=== PATIENT | female | born 1955 | race Caucasian/White ===

== ENCOUNTER → 2020-08-17 | Outpatient (CLI) | payer OTHER, MEDICARE ==
[~2020-08-17] MED LIST: GADOBENATE DIMEGLUMINE 1 ML IV ONE; SODIUM CHLORIDE 0.9% 100 ML ONE
[2020-08-17 09:51] LABS: BLOOD UREA NITROGEN 12 mg/dL (7-26); BUN/CREATININE RATIO 16 (6-25); CREATININE, SERUM 0.73 mg/dL (0.57-1.11); EST GLOMERULAR FILTRATION RATE > 60 ML/MIN (60-)
--- NOTE | 2020-08-17 12:00 | Diagnostic Imaging Report ---
MRV of the abdomen and pelvis. History: Bilateral lower extremity varicose veins. Comparison: None available. Technique: 2 D time of flight and contrast-enhanced 3-D MRV imaging of the abdomen and pelvis was performed pre and post-IV administration of 20 cc of MultiHance, during early and delayed phases. MIP and VRT reformations were obtained. Discussion: MRV demonstrates adequate contrast opacification and patency of the IVC, as well as the right common, internal, external iliac veins. The left common, internal, and external iliac veins are not well opacified with contrast and difficult to visualize. A 3.5 cm oval stone is present within the gallbladder without evidence of gallbladder wall thickening. A subcentimeter cyst is noted within the left kidney. The abdomen is otherwise unremarkable. IMPRESSION: 1. Patent IVC and right iliac vessels. Poor visualization of the left iliac vessels may be secondary to differential in flow and bolus timing, but thrombosis cannot be excluded. Consider correlation with lower extremity Doppler exam and/or CT. 2. Cholelithiasis. Signed by: Hernando Wall on 08/17/2020 11:57 AM
== END ==
LOC: MRI 09:03
PROVIDERS: ATTEND Internal Medicine Cardiovascular Disease
DX: N94.89 Other specified conditions associated with female genital organs and menstrual cycle (principal); I83.893 Varicose veins of bilateral lower extremities with other complications
CPT/HCPCS: 36415; 74185; 82565; 84520; A9577; J7050

== ENCOUNTER → 2020-12-11 | Day surgery (SDC) | payer MEDICARE ==
[2020-12-01 14:47] LABS: BASOPHILS # (AUTO) 0.1 (0.0-0.1); BASOPHILS % 1.2 % (0.0-1.0); EOSINOPHILS # (AUTO) 0.2 (0.0-0.4); EOSINOPHILS % 2.4 % (0.0-6.0); HEMATOCRIT 41.2 % (34.2-44.1); LYMPHOCYTES # (AUTO) 2.3 (1.0-3.2); LYMPHOCYTES % 30.3 % (18.0-39.1); MEAN CORPUSCULAR HEMOGLOBIN 28.1 pg (28-32); MEAN CORPUSCULAR HGB CONC 31.6 g/dL (31-35); MEAN CORPUSCULAR VOLUME 89.2 fL (81-99); MONOCYTES # (AUTO) 0.7 (0.2-0.8); MONOCYTES % 8.9 % (4.4-11.3); NEUTROPHILS # (AUTO) 4.3 (2.1-6.9); NEUTROPHILS % 57.1 % (38.7-80.0); PLATELET COUNT 526 x10e3/uL (140-360); RED BLOOD COUNT 4.62 x10e6/uL (3.6-5.1); RED CELL DISTRIBUTION WIDTH 13.4 % (11.7-14.4)
[2020-12-01 15:07] LABS: ALANINE AMINOTRANSFERASE 11 IU/L (0-55); ALBUMIN 3.7 g/dL (3.5-5.0); ALBUMIN/GLOBULIN RATIO 1.1 (0.8-2.0); ALKALINE PHOSPHATASE 76 IU/L (40-150); ANION GAP 14.3 mmol/L (8-16); BLOOD UREA NITROGEN 11 mg/dL (7-26); BUN/CREATININE RATIO 14 (6-25); CALCIUM 8.8 mg/dL (8.4-10.2); CARBON DIOXIDE 29 mmol/L (22-29); CHLORIDE 105 mmol/L (98-107); CREATININE, SERUM 0.77 mg/dL (0.57-1.11); EST GLOMERULAR FILTRATION RATE > 60 ML/MIN (60-); GLUCOSE 120 mg/dL (74-118); POTASSIUM 4.3 mmol/L (3.5-5.1); SODIUM 144 mmol/L (136-145)
[~2020-12-11] MED LIST changes: +ALBUTEROL0.63 MG/3 NEB; +BUPIVACAINE 0.25% 30ML SDV ONE; +DULERA 100 MCG/13 GM INH; +FENTANYL CITRATE/PF 100MCG/2 ML INJ ONE; -GADOBENATE DIMEGLUMINE 1 ML IV ONE; +HYDROCODONE/APAP 7.5MG-325MG 1 EA TAB ONE; +OMEPRAZOLE40 MG PO; -SODIUM CHLORIDE 0.9% 100 ML ONE; +VIT B12 INJ; +VIT D3 PO
[2020-12-11 12:30] VITALS: BP 110/60
== END | disposition home or self-care (01) ==
LOC: OR 06:50
PROVIDERS: ATTEND Surgery
DX: K80.10 Calculus of gallbladder with chronic cholecystitis without obstruction (principal); G47.33 Obstructive sleep apnea (adult) (pediatric); I69.354 Hemiplegia and hemiparesis following cerebral infarction affecting left non-dominant side; J45.909 Unspecified asthma, uncomplicated; Z88.6 Allergy status to analgesic agent; Z88.0 Allergy status to penicillin; Z01.810 Encounter for preprocedural cardiovascular examination; Z01.812 Encounter for preprocedural laboratory examination; Z01.818 Encounter for other preprocedural examination; Z20.822 Contact with and (suspected) exposure to COVID-19
CPT/HCPCS: 36415; 47562; 71046; 80053; 85025; 88304; 93005; C1766; J3010; U0002 ×2

== ENCOUNTER → 2023-01-23 | Outpatient (CLI) | payer MEDICARE ==
[~2023-01-23] MED LIST changes: -BUPIVACAINE 0.25% 30ML SDV ONE; -FENTANYL CITRATE/PF 100MCG/2 ML INJ ONE; -HYDROCODONE/APAP 7.5MG-325MG 1 EA TAB ONE
== END ==
LOC: RAD 12:18
PROVIDERS: ATTEND Internal Medicine
DX: Z09 Encounter for follow-up examination after completed treatment for conditions other than malignant neoplasm (principal)
CPT/HCPCS: 74019

== ENCOUNTER 2024-08-30 08:58 | Inpatient (IN) | payer MEDICARE ==
[~2024-08-30] VITALS: Ht 160 cm; Wt 95.3 kg
[2024-08-30] MEDS: Morphine 4mg INJECTION 4 MG/ML INJ IV STA (09:24)
[2024-08-30] MEDS: ONDANSETRON HCL INJ 2MG/ML 2ML 2 MG/ML VIAL IV STA (09:24)
[2024-08-30] MEDS: SODIUM CHLORIDE 0.9% 1000ML 1,000 ML IV STA ×3 (09:26→11:24)
[2024-08-30 09:27] LABS: BASOPHILS # (AUTO) 0.1 (0.0-0.1); BASOPHILS % 0.4 % (0.0-1.0); EOSINOPHILS % 0.1 % (0.0-6.0); HEMATOCRIT 44.6 % (34.2-44.1); HEMOGLOBIN 14.2 g/dL (12.0-16.0); LYMPHOCYTES # (AUTO) 0.8 (1.0-3.2); LYMPHOCYTES % 5.9 % (18.0-39.1); MEAN CORPUSCULAR HEMOGLOBIN 28.5 pg (28-32); MEAN CORPUSCULAR HGB CONC 31.8 g/dL (31-35); MEAN CORPUSCULAR VOLUME 89.4 fL (81-99); MONOCYTES % 7.9 % (4.4-11.3); NEUTROPHILS # (AUTO) 11.2 (2.1-6.9); NEUTROPHILS % 85.2 % (38.7-80.0); PLATELET COUNT 543 x10e3/uL (140-360); RED BLOOD COUNT 4.99 x10e6/uL (3.6-5.1); RED CELL DISTRIBUTION WIDTH 13.2 % (11.7-14.4); WHITE BLOOD COUNT 13.17 x10e3/uL (4.8-10.8)
[2024-08-30] MEDS: CIPROFLOXACIN 400 MG/D5W 200ML 200 ML IV SCH (09:28)
[2024-08-30] MEDS: ACETAMINOPHEN 325 MG TAB PO STA (09:31)
[2024-08-30 10:01] LABS: ALBUMIN 3.9 g/dL (3.5-5.0); ALBUMIN/GLOBULIN RATIO 1.1 (0.8-2.0); ANION GAP 16.3 mmol/L (8-16); BILIRUBIN,TOTAL 1.1 mg/dL (0.2-1.2); CALCIUM 9.2 mg/dL (8.4-10.2); CREATININE, SERUM 0.82 mg/dL (0.57-1.11); TOTAL PROTEIN 7.6 g/dL (6.5-8.1)
[2024-08-30 10:03] LABS: POTASSIUM 3.3 mmol/L (3.5-5.1)
[2024-08-30 10:07] LABS: TROPONIN I 0.001 ng/mL (0-0.300)
[2024-08-30] MEDS: METRONIDAZOLE 500MG/NS 100ML 100 ML IV SCH (10:12)
[2024-08-30] MEDS ORDERED: IOPAMIDOL 370 MG/ML 100 ML INFUS..BTL INJ ONE ×2 (10:32→13:51)
[2024-08-30 11:38] LABS: BILIRUBIN,URINE NEGATIVE (NEGATIVE); CLARITY,URINE CLEAR (CLEAR); COLOR,URINE YELLOW (YELLOW); GLUCOSE, URINE NEGATIVE (NEGATIVE); KETONES,URINE 1+ (NEGATIVE); LEUKOCYTE ESTERASE ,URINE SMALL (NEGATIVE); NITRITE,URINE NEGATIVE (NEGATIVE); PH,URINE 6 (5 - 7); PROTEIN,URINE DIPSTICK NEGATIVE (NEGATIVE); URINE UROBILINOGEN 0.2 mg/dL (0.2 - 1)
[2024-08-30 11:51] LABS: BACTERIA,URINE MANY /HPF; EPITHELIAL CELLS,URINE MANY /LPF; RBC,URINE 0-5 /HPF (0-5)
[2024-08-30] MEDS ORDERED: ONDANSETRON HCL INJ 2MG/ML 2ML 2 MG/ML VIAL IV PRN (12:00)
[2024-08-30 12:02] LABS: INR 1.06; PROTHROMBIN TIME 14.4 seconds (11.9-14.5)
[2024-08-30] MEDS: SODIUM CHLORIDE 0.9% 1000ML 1,000 ML IV SCH (13:41)
[2024-08-30] MEDS ORDERED: SODIUM CHLORIDE 0.9% 500ML 500 ML ONE (13:51)
[2024-08-30] MEDS ORDERED: LIDOCAINE HCL 1% LOCAL INJ 20 ML VIAL ONE (13:51)
[2024-08-30] MEDS ORDERED: CEFTRIAXONE 1 GM VIAL ONE (14:23)
[2024-08-30] MEDS ORDERED: FENTANYL CITRATE/PF 100MCG/2 ML INJ ONE (15:57)
[2024-08-30] MEDS ORDERED: MIDAZOLAM HCL 2 MG/2 ML VIAL ONE (15:57)
[2024-08-30 17:00] VITALS: PULSE 84; RESP 20; TEMP 98.8
[2024-08-30] MEDS: Morphine 4mg INJECTION 4 MG/ML INJ IV PRN (18:05)
[2024-08-30 20:00] VITALS: BP 115/51; PULSE 96; RESP 18; TEMP 100.9; O2SAT 95
[2024-08-30 20:42] VITALS: PULSE 96; RESP 18; O2SAT 95
[2024-08-30 22:57] VITALS: BP 115/51; PULSE 96; RESP 18; TEMP 100.9; O2SAT 95
[2024-08-30 22:58] VITALS: BP 115/51; PULSE 96; RESP 18; TEMP 100.9; O2SAT 95
[2024-08-30 22:59] VITALS: BP 115/51; PULSE 96; RESP 18; TEMP 100.9; O2SAT 95
[2024-08-30] MEDS ORDERED: HYDRALAZINE HCL 20 MG/ML VIAL IV PRN (23:45)
[2024-08-30] MEDS ORDERED: ACETAMINOPHEN 1000 MG/100 ML IV PRN (23:45)
[2024-08-30] MEDS: ACETAMINOPHEN 325 MG TAB PO PRN (23:56)
[2024-08-31] VITALS (9 sets, daily range): BP systolic 100–130; BP diastolic 44–66; PULSE 73–99; RESP 18–20; TEMP 98.1–103; O2SAT 95–100
[2024-08-31 06:33] LABS: BASOPHILS # (AUTO) 0.1 (0.0-0.1); BASOPHILS % 0.4 % (0.0-1.0); EOSINOPHILS % 0.1 % (0.0-6.0); HEMATOCRIT 34.8 % (34.2-44.1); HEMOGLOBIN 11.3 g/dL (12.0-16.0); LYMPHOCYTES # (AUTO) 1.3 (1.0-3.2); LYMPHOCYTES % 9.3 % (18.0-39.1); MEAN CORPUSCULAR HEMOGLOBIN 28.6 pg (28-32); MEAN CORPUSCULAR HGB CONC 32.5 g/dL (31-35); MEAN CORPUSCULAR VOLUME 88.1 fL (81-99); MONOCYTES # (AUTO) 1.6 (0.2-0.8); MONOCYTES % 12.1 % (4.4-11.3); NEUTROPHILS # (AUTO) 10.5 (2.1-6.9); NEUTROPHILS % 77.6 % (38.7-80.0); PLATELET COUNT 416 x10e3/uL (140-360); RED BLOOD COUNT 3.95 x10e6/uL (3.6-5.1); RED CELL DISTRIBUTION WIDTH 13.4 % (11.7-14.4); WHITE BLOOD COUNT 13.51 x10e3/uL (4.8-10.8)
[2024-08-31 07:07] LABS: ALANINE AMINOTRANSFERASE 28 IU/L (0-55); ALBUMIN 2.6 g/dL (3.5-5.0); ALBUMIN/GLOBULIN RATIO 0.9 (0.8-2.0); ALKALINE PHOSPHATASE 61 IU/L (40-150); BILIRUBIN,TOTAL 0.6 mg/dL (0.2-1.2); BLOOD UREA NITROGEN < 5 mg/dL (7-26); CALCIUM 7.9 mg/dL (8.4-10.2); CARBON DIOXIDE 23 mmol/L (22-29); CHLORIDE 107 mmol/L (98-107); CREATININE, SERUM 0.68 mg/dL (0.57-1.11); EST GLOMERULAR FILTRATION RATE 95 ML/MIN (>=60); GLUCOSE 98 mg/dL (74-118); SODIUM 138 mmol/L (136-145); TOTAL PROTEIN 5.4 g/dL (6.5-8.1)
[2024-08-31 07:08] LABS: BUN/CREATININE RATIO 7 (6-25)
[2024-08-31] MEDS: HYDROCODONE/APAP 10MG-325MG TAB PO PRN (08:47)
[2024-08-31] MEDS ORDERED: ALBUTEROL/IPRATROPIUM 3 ML NEB NEB PRN (10:30)
[2024-08-31] MEDS ORDERED: KETOROLAC TROMETHAMINE 30 MG/ML VIAL IV PRN (10:30)
[2024-08-31] MEDS: KETOROLAC TROMETHAMINE 30 MG/ML VIAL IV STA (12:47)
[2024-08-31] MEDS: CEFEPIME 2 GM in SODIUM CHLORIDE 0.9% 100 ML IV SCH (13:09)
[2024-09-01] VITALS (7 sets, daily range): BP systolic 114–139; BP diastolic 52–69; PULSE 71–78; RESP 16–19; TEMP 98.7–99.6; O2SAT 98–100
[2024-09-01] MEDS: PANTOPRAZOLE SOD 40 MG TABEC PO SCH (10:56)
[2024-09-01] MEDS ORDERED: SODIUM CHLORIDE 0.9% 100 ML ONE (13:03)
[2024-09-02] VITALS (9 sets, daily range): BP systolic 102–152; BP diastolic 51–79; PULSE 68–85; RESP 17–19; TEMP 98.2–98.8; O2SAT 96–100
[2024-09-02 06:28] LABS: BASOPHILS # (AUTO) 0.1 (0.0-0.1); BASOPHILS % 0.7 % (0.0-1.0); EOSINOPHILS # (AUTO) 0.1 (0.0-0.4); EOSINOPHILS % 1.7 % (0.0-6.0); HEMATOCRIT 32.9 % (34.2-44.1); HEMOGLOBIN 10.4 g/dL (12.0-16.0); LYMPHOCYTES # (AUTO) 1.3 (1.0-3.2); LYMPHOCYTES % 15.7 % (18.0-39.1); MEAN CORPUSCULAR HEMOGLOBIN 28.2 pg (28-32); MEAN CORPUSCULAR HGB CONC 31.6 g/dL (31-35); MEAN CORPUSCULAR VOLUME 89.2 fL (81-99); MONOCYTES % 11.8 % (4.4-11.3); NEUTROPHILS # (AUTO) 5.9 (2.1-6.9); NEUTROPHILS % 69.6 % (38.7-80.0); PLATELET COUNT 441 x10e3/uL (140-360); RED BLOOD COUNT 3.69 x10e6/uL (3.6-5.1); RED CELL DISTRIBUTION WIDTH 13.3 % (11.7-14.4); WHITE BLOOD COUNT 8.42 x10e3/uL (4.8-10.8)
[2024-09-02 07:07] LABS: ANION GAP 11.9 mmol/L (8-16); BLOOD UREA NITROGEN < 5 mg/dL (7-26); CALCIUM 8.2 mg/dL (8.4-10.2); CARBON DIOXIDE 24 mmol/L (22-29); CHLORIDE 110 mmol/L (98-107); CREATININE, SERUM 0.61 mg/dL (0.57-1.11); EST GLOMERULAR FILTRATION RATE 98 ML/MIN (>=60); GLUCOSE 89 mg/dL (74-118); SODIUM 143 mmol/L (136-145)
[2024-09-02 07:26] LABS: BUN/CREATININE RATIO 8 (6-25); POTASSIUM 2.9 mmol/L (3.5-5.1)
[2024-09-02] MEDS: POTASSIUM CHLORIDE 20MEQ/100ML 100 ML IV STA (10:32)
[2024-09-02] MEDS: SOD CHL 0.45%/POT CHL 20MEQ 1,000 ML IV SCH (10:32)
[2024-09-02] MEDS: POTASSIUM CHLORIDE 10MEQ EA PO SCH (10:33)
[2024-09-02] MEDS: Morphine 4mg INJECTION 4 MG/ML INJ IV PRN (16:21)
[2024-09-03] VITALS (9 sets, daily range): BP systolic 96–134; BP diastolic 56–71; PULSE 68–85; RESP 16–21; TEMP 97.9–99; O2SAT 95–100
[2024-09-03 08:58] LABS: BASOPHILS % 0.6 % (0.0-1.0); EOSINOPHILS # (AUTO) 0.2 (0.0-0.4); EOSINOPHILS % 2.3 % (0.0-6.0); HEMATOCRIT 37.2 % (34.2-44.1); HEMOGLOBIN 11.6 g/dL (12.0-16.0); LYMPHOCYTES # (AUTO) 1.4 (1.0-3.2); LYMPHOCYTES % 20.4 % (18.0-39.1); MEAN CORPUSCULAR HEMOGLOBIN 28.3 pg (28-32); MEAN CORPUSCULAR HGB CONC 31.2 g/dL (31-35); MEAN CORPUSCULAR VOLUME 90.7 fL (81-99); MONOCYTES # (AUTO) 0.6 (0.2-0.8); MONOCYTES % 9.2 % (4.4-11.3); NEUTROPHILS # (AUTO) 4.7 (2.1-6.9); NEUTROPHILS % 67.1 % (38.7-80.0); PLATELET COUNT 537 x10e3/uL (140-360); RED CELL DISTRIBUTION WIDTH 13.6 % (11.7-14.4); WHITE BLOOD COUNT 6.95 x10e3/uL (4.8-10.8)
[2024-09-03 09:15] LABS: ANION GAP 11.9 mmol/L (8-16); BLOOD UREA NITROGEN < 5 mg/dL (7-26); CARBON DIOXIDE 26 mmol/L (22-29); CHLORIDE 106 mmol/L (98-107); CREATININE, SERUM 0.64 mg/dL (0.57-1.11); EST GLOMERULAR FILTRATION RATE 97 ML/MIN (>=60); GLUCOSE 124 mg/dL (74-118); POTASSIUM 3.9 mmol/L (3.5-5.1); SODIUM 140 mmol/L (136-145)
[2024-09-03 09:16] LABS: MAGNESIUM 1.8 MG/DL (1.3-2.1)
[2024-09-03 09:20] LABS: BUN/CREATININE RATIO 8 (6-25)
[2024-09-03] MEDS: AMOXICILLIN 250 MG CAP PO SCH (22:03)
[2024-09-04] VITALS (12 sets, daily range): BP systolic 114–162; BP diastolic 60–86; PULSE 73–90; RESP 16–21; TEMP 97.4–98.5; O2SAT 98–100
[2024-09-04] MEDS ORDERED: PHENAZOPYRIDINE HCL 100 MG TAB PO PRN (13:15)
[2024-09-05] VITALS (8 sets, daily range): BP systolic 101–117; BP diastolic 51–60; PULSE 64–86; RESP 18; TEMP 97.6–98.6; O2SAT 95–100
[2024-09-05] MEDS ORDERED: MIDAZOLAM HCL 2 MG/2 ML VIAL ONE (04:24)
[2024-09-05] MEDS ORDERED: PROPOFOL IV EMULSION 10 MG/ML 20 ML VIAL ONE ×2 (04:25→04:48)
[2024-09-05] MEDS ORDERED: FENTANYL CITRATE/PF 100MCG/2 ML INJ ONE (04:31)
[2024-09-05] MEDS ORDERED: DEXAMETHASONE SOD PHOS INJ 4 MG/ML SDV ONE (04:40)
[2024-09-05] MEDS ORDERED: KETOROLAC TROMETHAMINE 30 MG/ML VIAL ONE (04:40)
[2024-09-05] MEDS ORDERED: ONDANSETRON HCL INJ 2MG/ML 2ML 2 MG/ML VIAL ONE (04:40)
[2024-09-05] MEDS: SOLIFENACIN SUCCINATE 5 MG TAB PO SCH (09:45)
[2024-09-06 00:43] VITALS: BP 117/53; PULSE 73; RESP 16; TEMP 97.9; O2SAT 99
[2024-09-06 04:00] VITALS: BP 111/58; PULSE 66; RESP 17; TEMP 97.9; O2SAT 97
[2024-09-06 09:00] VITALS: BP 133/81; PULSE 72; RESP 17; TEMP 98.9; O2SAT 95
[2024-09-06 09:33] VITALS: BP 133/81; PULSE 72; RESP 17; TEMP 98.9; O2SAT 95
== END 2024-09-06 11:08 | disposition home or self-care (01) | DRG 854 ==
LOC: ER 09:02 → ERHOLD 12:30 → MED/SURG3 18:34
PROVIDERS: ADMIT Internal Medicine; ATTEND Internal Medicine
PROC: 3E0333Z Introduction of Anti-inflammatory into Peripheral Vein, Percutaneous Approach (ICD-10-PCS; principal; 2024-08-30)
PROC: 06HY33Z Insertion of Infusion Device into Lower Vein, Percutaneous Approach (ICD-10-PCS; 2024-08-30)
PROC: 0T9130Z Drainage of Left Kidney with Drainage Device, Percutaneous Approach (ICD-10-PCS; 2024-08-30)
PROC: 02HV33Z Insertion of Infusion Device into Superior Vena Cava, Percutaneous Approach (ICD-10-PCS; 2024-08-30)
PROC: 0T778DZ Dilation of Left Ureter with Intraluminal Device, Via Natural or Artificial Opening Endoscopic (ICD-10-PCS; 2024-09-04)
PROC: 0T7D8ZZ Dilation of Urethra, Via Natural or Artificial Opening Endoscopic (ICD-10-PCS; 2024-09-04)
PROC: 0TP5X0Z Removal of Drainage Device from Kidney, External Approach (ICD-10-PCS; 2024-09-04)
PROC: BT141ZZ Fluoroscopy of Kidneys, Ureters and Bladder using Low Osmolar Contrast (ICD-10-PCS; 2024-09-04)
DX: A41.81 Sepsis due to Enterococcus (principal); N13.6 Pyonephrosis; N23 Unspecified renal colic; E86.0 Dehydration; R53.81 Other malaise; R11.2 Nausea with vomiting, unspecified; D64.9 Anemia, unspecified; R31.0 Gross hematuria; E66.9 Obesity, unspecified; Z68.37 Body mass index [BMI] 37.0-37.9, adult; Z96.0 Presence of urogenital implants; Z90.49 Acquired absence of other specified parts of digestive tract; Z90.711 Acquired absence of uterus with remaining cervical stump; Z98.84 Bariatric surgery status; Z88.0 Allergy status to penicillin; Z88.6 Allergy status to analgesic agent; N81.10 Cystocele, unspecified; N81.6 Rectocele; N35.92 Unspecified urethral stricture, female
CPT/HCPCS: 36415; 36568; 50432; 74177; 74420; 74470; 76942; 80048; 80053; 81001; 82550; 83605; 83690; 83735; 84100; 84484; 85025; 85610; 87040; 87086; 87186; 93005; 94660; 94799; 99152; 99153; 99284; C1729; C1758; C1766; C1769; C2617; J0692; J0696; J1100; J1885; J2003; J2250; J2270; J2405; J3480; J7030; J7040; J7050; Q9967

== ENCOUNTER 2024-09-10 10:23 | Inpatient (IN) | payer MEDICARE, OTHER ==
[~2024-09-10] VITALS: Ht 167.6 cm; Wt 95.3 kg
[2024-09-10 12:40] LABS: BILIRUBIN,URINE SMALL (NEGATIVE); CLARITY,URINE TURBID (CLEAR); COLOR,URINE RED (YELLOW); GLUCOSE, URINE NEGATIVE (NEGATIVE); KETONES,URINE TRACE (NEGATIVE); LEUKOCYTE ESTERASE ,URINE SMALL (NEGATIVE); NITRITE,URINE NEGATIVE (NEGATIVE); PH,URINE 8.5 (5 - 7); PROTEIN,URINE DIPSTICK >=300 (NEGATIVE); URINE UROBILINOGEN 1 mg/dL (0.2 - 1)
[2024-09-10 12:41] LABS: BACTERIA,URINE MANY /HPF; EPITHELIAL CELLS,URINE RARE /LPF; RBC,URINE >50 /HPF (0-5); WBC,URINE (MAN) >50 /HPF (0-5)
[2024-09-10 12:41] LABS: BASOPHILS # (AUTO) 0.1 (0.0-0.1); BASOPHILS % 0.7 % (0.0-1.0); EOSINOPHILS # (AUTO) 0.2 (0.0-0.4); EOSINOPHILS % 2.8 % (0.0-6.0); HEMATOCRIT 37.1 % (34.2-44.1); HEMOGLOBIN 11.9 g/dL (12.0-16.0); LYMPHOCYTES # (AUTO) 1.4 (1.0-3.2); LYMPHOCYTES % 21.1 % (18.0-39.1); MEAN CORPUSCULAR HEMOGLOBIN 28.5 pg (28-32); MEAN CORPUSCULAR HGB CONC 32.1 g/dL (31-35); MEAN CORPUSCULAR VOLUME 88.8 fL (81-99); MONOCYTES # (AUTO) 0.6 (0.2-0.8); MONOCYTES % 8.2 % (4.4-11.3); NEUTROPHILS # (AUTO) 4.5 (2.1-6.9); NEUTROPHILS % 66.9 % (38.7-80.0); PLATELET COUNT 690 x10e3/uL (140-360); RED BLOOD COUNT 4.18 x10e6/uL (3.6-5.1); RED CELL DISTRIBUTION WIDTH 14.5 % (11.7-14.4); WHITE BLOOD COUNT 6.74 x10e3/uL (4.8-10.8)
[2024-09-10 13:01] LABS: INR 1.13; PROTHROMBIN TIME 15.2 seconds (11.9-14.5)
[2024-09-10 13:02] LABS: ALBUMIN 3.4 g/dL (3.5-5.0); ALBUMIN/GLOBULIN RATIO 1.2 (0.8-2.0); BILIRUBIN,TOTAL 0.5 mg/dL (0.2-1.2); CALCIUM 8.8 mg/dL (8.4-10.2); CREATININE, SERUM 0.66 mg/dL (0.57-1.11); PARTIAL THROMBOPLASTIN TIME 34.5 seconds (23.8-35.5); TOTAL PROTEIN 6.3 g/dL (6.5-8.1)
[2024-09-10] MEDS ORDERED: IOPAMIDOL 370 MG/ML 100 ML INFUS..BTL INJ ONE (14:23)
[2024-09-10] MEDS ORDERED: ONDANSETRON HCL INJ 2MG/ML 2ML 2 MG/ML VIAL IV PRN (16:30)
[2024-09-10] MEDS ORDERED: SODIUM CHLORIDE FLUSH 10 ML SYR INJ PRN (16:30)
[2024-09-10] MEDS: LEVOFLOXACIN 500MG/D5W 100ML 100 ML IV SCH (18:47)
[2024-09-10 18:51] VITALS: PULSE 74; RESP 19; TEMP 98.6
[2024-09-10 20:00] VITALS: BP 111/51; PULSE 67; RESP 18; TEMP 98.1; O2SAT 100
[2024-09-10 21:00] VITALS: BP 111/51; PULSE 67; RESP 18; TEMP 98.1; O2SAT 100
[2024-09-10] MEDS: SODIUM CHLORIDE 0.9% 1000ML 1,000 ML IV SCH (21:34)
[2024-09-11] VITALS (8 sets, daily range): BP systolic 105–128; BP diastolic 50–60; PULSE 67–77; RESP 18–20; TEMP 97.4–98.6; O2SAT 97–100
[2024-09-11] MEDS ORDERED: VENTOLIN HFA18 GM INH (01:25)
[2024-09-11] MEDS ORDERED: ZAFIRLUKAST20 MG PO (01:25)
[2024-09-11] MEDS ORDERED: SOLIFENACIN SUC10 MG PO (01:25)
[2024-09-11] MEDS ORDERED: MIRTAZAPINE7.5 MG PO (01:25)
[2024-09-11 07:00] LABS: BASOPHILS # (AUTO) 0.1 (0.0-0.1); BASOPHILS % 1.1 % (0.0-1.0); EOSINOPHILS # (AUTO) 0.2 (0.0-0.4); EOSINOPHILS % 4.4 % (0.0-6.0); HEMATOCRIT 36.1 % (34.2-44.1); HEMOGLOBIN 11.2 g/dL (12.0-16.0); LYMPHOCYTES # (AUTO) 1.3 (1.0-3.2); LYMPHOCYTES % 23.3 % (18.0-39.1); MEAN CORPUSCULAR VOLUME 90.3 fL (81-99); MONOCYTES # (AUTO) 0.6 (0.2-0.8); MONOCYTES % 10.3 % (4.4-11.3); NEUTROPHILS # (AUTO) 3.3 (2.1-6.9); NEUTROPHILS % 60.5 % (38.7-80.0); PLATELET COUNT 611 x10e3/uL (140-360); RED CELL DISTRIBUTION WIDTH 14.3 % (11.7-14.4); WHITE BLOOD COUNT 5.46 x10e3/uL (4.8-10.8)
[2024-09-11 07:51] LABS: ANION GAP 12.7 mmol/L (8-16); BILIRUBIN,TOTAL 0.5 mg/dL (0.2-1.2); CALCIUM 8.8 mg/dL (8.4-10.2); CREATININE, SERUM 0.65 mg/dL (0.57-1.11); POTASSIUM 3.7 mmol/L (3.5-5.1)
[2024-09-11] MEDS ORDERED: MAGNESIUM HYDROXIDE 30 ML UDC PO PRN (10:00)
[2024-09-11] MEDS ORDERED: Morphine 4mg INJECTION 4 MG/ML INJ IV PRN (10:00)
[2024-09-11] MEDS ORDERED: HYDROCODONE/APAP 10MG-325MG TAB PO PRN (10:00)
[2024-09-11] MEDS: SENNA-S TABLET PO SCH (17:00)
[2024-09-11] MEDS ORDERED: BUPROPION XL150 MG PO (20:33)
[2024-09-11] MEDS: MIRTAZAPINE 15 MG TAB PO SCH (20:36)
[2024-09-12] VITALS (7 sets, daily range): BP systolic 105–118; BP diastolic 47–58; PULSE 63–74; RESP 16–19; TEMP 97.2–98.2; O2SAT 98–100
[2024-09-12] MEDS: PANTOPRAZOLE SOD 40 MG TABEC PO SCH (06:21)
[2024-09-13] VITALS (8 sets, daily range): BP systolic 102–121; BP diastolic 49–68; PULSE 68–81; RESP 16–18; TEMP 97.7–98.9; O2SAT 97–99
[2024-09-14 00:34] VITALS: BP 116/62; PULSE 65; RESP 20; TEMP 98.1; O2SAT 100
[2024-09-14 04:00] VITALS: BP 114/70; PULSE 68; RESP 18; TEMP 97.9; O2SAT 99
[2024-09-14 06:12] LABS: BASOPHILS # (AUTO) 0.1 (0.0-0.1); BASOPHILS % 1.3 % (0.0-1.0); EOSINOPHILS # (AUTO) 0.2 (0.0-0.4); EOSINOPHILS % 3.1 % (0.0-6.0); HEMOGLOBIN 12.5 g/dL (12.0-16.0); LYMPHOCYTES # (AUTO) 2.1 (1.0-3.2); LYMPHOCYTES % 39.3 % (18.0-39.1); MEAN CORPUSCULAR HEMOGLOBIN 28.5 pg (28-32); MEAN CORPUSCULAR HGB CONC 30.5 g/dL (31-35); MEAN CORPUSCULAR VOLUME 93.4 fL (81-99); MONOCYTES # (AUTO) 0.5 (0.2-0.8); MONOCYTES % 8.6 % (4.4-11.3); NEUTROPHILS # (AUTO) 2.6 (2.1-6.9); NEUTROPHILS % 47.5 % (38.7-80.0); PLATELET COUNT 588 x10e3/uL (140-360); RED BLOOD COUNT 4.39 x10e6/uL (3.6-5.1); RED CELL DISTRIBUTION WIDTH 13.9 % (11.7-14.4); WHITE BLOOD COUNT 5.45 x10e3/uL (4.8-10.8)
[2024-09-14 06:45] LABS: ANION GAP 14.9 mmol/L (8-16); CALCIUM 9.3 mg/dL (8.4-10.2); CREATININE, SERUM 0.73 mg/dL (0.57-1.11); POTASSIUM 3.9 mmol/L (3.5-5.1)
[2024-09-14 08:18] VITALS: BP 106/52; PULSE 73; RESP 18; TEMP 98; O2SAT 98
[2024-09-14 12:21] VITALS: BP 110/64; PULSE 79; RESP 17; TEMP 98.3; O2SAT 100
[2024-09-14 16:00] VITALS: BP 121/68; PULSE 72; RESP 18; TEMP 98; O2SAT 98
[2024-09-14 20:32] VITALS: BP 116/55; PULSE 76; RESP 17; TEMP 98.2; O2SAT 100
[2024-09-15 01:51] VITALS: BP 116/55; PULSE 76; RESP 17; TEMP 98.2; O2SAT 100
[2024-09-15 04:16] VITALS: BP 113/56; PULSE 66; RESP 16; TEMP 98.1; O2SAT 97
[2024-09-15 08:00] VITALS: BP 130/74; PULSE 71; RESP 18; TEMP 97.8; O2SAT 100
[2024-09-15 12:12] VITALS: BP 131/67; PULSE 74; RESP 18; TEMP 97.8; O2SAT 96
[2024-09-15] MEDS ORDERED: LIDOCAINE HCL 2% LOCAL INJ 5 ML SDV VIAL INJ ONE (14:33)
[2024-09-15] MEDS ORDERED: PROPOFOL IV EMULSION 10 MG/ML 20 ML VIAL ONE (14:33)
[2024-09-15] MEDS ORDERED: FENTANYL CITRATE/PF 100MCG/2 ML INJ ONE (14:46)
[2024-09-15] MEDS ORDERED: ONDANSETRON HCL INJ 2MG/ML 2ML 2 MG/ML VIAL ONE (14:55)
[2024-09-15] MEDS ORDERED: DEXAMETHASONE SOD PHOS INJ 4 MG/ML SDV ONE (14:55)
[2024-09-15] MEDS ORDERED: ACETAMINOPHEN 1000 MG/100 ML 100 ML IV ONE (14:56)
[2024-09-15 16:30] VITALS: BP 142/66; PULSE 64; RESP 18; TEMP 97.5; O2SAT 100
[2024-09-15] MEDS ORDERED: PHENAZOPYRIDINE HCL 100 MG TAB PO PRN (17:15)
[2024-09-16] MEDS ORDERED: SOLIFENACIN SUCCINATE 5 MG TAB PO SCH (09:00)
== END 2024-09-15 21:20 | disposition home or self-care (01) | DRG 660 ==
LOC: ER 11:06 → ERHOLD 16:25 → OBSVTOIN 18:15 → MED/SURG3 19:54
PROVIDERS: ADMIT Internal Medicine; ATTEND Internal Medicine
PROC: 0TP98DZ Removal of Intraluminal Device from Ureter, Via Natural or Artificial Opening Endoscopic (ICD-10-PCS; 2024-09-15)
PROC: BT1F1ZZ Fluoroscopy of Left Kidney, Ureter and Bladder using Low Osmolar Contrast (ICD-10-PCS; 2024-09-15)
PROC: 0UJH7ZZ Inspection of Vagina and Cul-de-sac, Via Natural or Artificial Opening (ICD-10-PCS; 2024-09-15)
PROC: 0T778DZ Dilation of Left Ureter with Intraluminal Device, Via Natural or Artificial Opening Endoscopic (ICD-10-PCS; principal; 2024-09-15 14:47)
PROC: 0TF4XZZ Fragmentation in Left Kidney Pelvis, External Approach (ICD-10-PCS; 2024-09-15 14:47)
DX: T83.593A Infection and inflammatory reaction due to other urinary stents, initial encounter (principal); D68.9 Coagulation defect, unspecified; N13.6 Pyonephrosis; B95.2 Enterococcus as the cause of diseases classified elsewhere; R31.0 Gross hematuria; N81.10 Cystocele, unspecified; N81.6 Rectocele; N95.2 Postmenopausal atrophic vaginitis; N36.2 Urethral caruncle; D64.9 Anemia, unspecified; E66.9 Obesity, unspecified; Z68.33 Body mass index [BMI] 33.0-33.9, adult; Z98.84 Bariatric surgery status; Z90.49 Acquired absence of other specified parts of digestive tract; Z96.0 Presence of urogenital implants; Z88.0 Allergy status to penicillin; Y83.1 Surgical operation with implant of artificial internal device as the cause of abnormal reaction of the patient, or of later complication, without mention of misadventure at the time of the procedure; Z79.899 Other long term (current) drug therapy
CPT/HCPCS: 36415; 50590; 74177; 80048; 80053; 81001; 85025; 85610; 85730; 87086; 99252; 99284; C1758; C2617; J1100; J1956; J2003; J2405; J2470; J7030; Q9967

== ENCOUNTER → 2024-11-05 | Day surgery (SDC) | payer MEDICARE, OTHER ==
[2024-11-03 16:38] LABS: BASOPHILS # (AUTO) 0.1 (0.0-0.1); BASOPHILS % 0.8 % (0.0-1.0); EOSINOPHILS # (AUTO) 0.2 (0.0-0.4); EOSINOPHILS % 2.4 % (0.0-6.0); HEMATOCRIT 40.7 % (34.2-44.1); HEMOGLOBIN 12.1 g/dL (12.0-16.0); LYMPHOCYTES % 31.7 % (18.0-39.1); MEAN CORPUSCULAR HEMOGLOBIN 28.1 pg (28-32); MEAN CORPUSCULAR HGB CONC 29.7 g/dL (31-35); MEAN CORPUSCULAR VOLUME 94.7 fL (81-99); MONOCYTES # (AUTO) 0.5 (0.2-0.8); MONOCYTES % 8.1 % (4.4-11.3); NEUTROPHILS # (AUTO) 3.6 (2.1-6.9); PLATELET COUNT 465 x10e3/uL (140-360); RED CELL DISTRIBUTION WIDTH 13.2 % (11.7-14.4); WHITE BLOOD COUNT 6.28 x10e3/uL (4.8-10.8)
[~2024-11-05] MED LIST changes: +BUPROPION XL150 MG PO; +CLOPIDOGREL75 MG PO; +DEXAMETHASONE SOD PHOS INJ 4 MG/ML SDV ONE; +ELIQUIS5 MG PO; +FENTANYL CITRATE/PF 100MCG/2 ML INJ ONE; +LIDOCAINE HCL 2% LOCAL INJ 5 ML SDV VIAL INJ ONE; +MIDAZOLAM HCL 2 MG/2 ML VIAL ONE; +MIRTAZAPINE7.5 MG PO; +ONDANSETRON HCL INJ 2MG/ML 2ML 2 MG/ML VIAL ONE; +PROPOFOL IV EMULSION 10 MG/ML 20 ML VIAL ONE; +SEVOFLURANE INHAL SOLN 250 ML PEN BTL ONE; +SOLIFENACIN SUC10 MG PO; +VENTOLIN HFA18 GM INH; +ZAFIRLUKAST20 MG PO
[2024-11-05] MEDS: GENTAMICIN 80MG/NS 100 ML 200 ML IV ONE (06:24)
[2024-11-05] MEDS: LACTATED RINGER'S 1,000 ML ONE (06:25)
[2024-11-05 06:53] LABS: ANION GAP 15.2 mmol/L (8-16); CREATININE, SERUM 0.75 mg/dL (0.57-1.11); URIC ACID 4.6 mg/dL (2.6-8.0)
[2024-11-05 06:54] LABS: POTASSIUM 3.2 mmol/L (3.5-5.1)
[2024-11-05] MEDS: PHENAZOPYRIDINE HCL 100 MG TAB ONE (08:52)
[2024-11-05 09:00] VITALS: O2SAT 98
[2024-11-05 09:15] VITALS: BP 125/55; PULSE 80; RESP 16
== END | disposition home or self-care (01) ==
LOC: OR 05:17
PROVIDERS: ATTEND Urology
DX: N20.1 Calculus of ureter (principal); N20.0 Calculus of kidney; N13.30 Unspecified hydronephrosis; Z46.6 Encounter for fitting and adjustment of urinary device; R35.1 Nocturia; R39.14 Feeling of incomplete bladder emptying; N35.92 Unspecified urethral stricture, female; N81.6 Rectocele; N95.2 Postmenopausal atrophic vaginitis; N36.2 Urethral caruncle; G47.33 Obstructive sleep apnea (adult) (pediatric); J45.909 Unspecified asthma, uncomplicated; K21.9 Gastro-esophageal reflux disease without esophagitis; G89.29 Other chronic pain; F41.9 Anxiety disorder, unspecified; F32.A Depression, unspecified; Z88.6 Allergy status to analgesic agent; Z88.0 Allergy status to penicillin; Z01.810 Encounter for preprocedural cardiovascular examination; Z01.812 Encounter for preprocedural laboratory examination; Z01.818 Encounter for other preprocedural examination; Z79.02 Long term (current) use of antithrombotics/antiplatelets; Z79.899 Other long term (current) drug therapy; Z68.36 Body mass index [BMI] 36.0-36.9, adult; Z86.718 Personal history of other venous thrombosis and embolism
CPT/HCPCS: 36415 ×2; 52356; 71046; 74018; 74420; 80048; 84550; 85025; 87086; 87186; 88300; 93005; C1769; C2617; J1100; J1580; J2003; J2405; J2704; J3010; J7121; J2250

== ENCOUNTER → 2025-01-19 | Day surgery (SDC) | payer MEDICARE ==
[2025-01-17 10:13] LABS: BASOPHILS # (AUTO) 0.1 (0.0-0.1); BASOPHILS % 1.1 % (0.0-1.0); EOSINOPHILS # (AUTO) 0.1 (0.0-0.4); EOSINOPHILS % 2.2 % (0.0-6.0); HEMATOCRIT 37.5 % (34.2-44.1); LYMPHOCYTES # (AUTO) 1.7 (1.0-3.2); LYMPHOCYTES % 30.3 % (18.0-39.1); MEAN CORPUSCULAR HEMOGLOBIN 27.8 pg (28-32); MEAN CORPUSCULAR VOLUME 86.8 fL (81-99); MONOCYTES # (AUTO) 0.5 (0.2-0.8); MONOCYTES % 8.5 % (4.4-11.3); NEUTROPHILS # (AUTO) 3.2 (2.1-6.9); NEUTROPHILS % 57.7 % (38.7-80.0); PLATELET COUNT 460 x10e3/uL (140-360); RED BLOOD COUNT 4.32 x10e6/uL (3.6-5.1); RED CELL DISTRIBUTION WIDTH 13.7 % (11.7-14.4); WHITE BLOOD COUNT 5.54 x10e3/uL (4.8-10.8)
[~2025-01-19] MED LIST changes: +B12 ACTIVE1000 MCG; +FAMOTIDINE 20 MG/2 ML VIAL IV ONE; -MIDAZOLAM HCL 2 MG/2 ML VIAL ONE; -SEVOFLURANE INHAL SOLN 250 ML PEN BTL ONE; +VITAMIN B12 INJ; +VITAMIN D250 MCG
[2025-01-19] MEDS: SODIUM CHLORIDE 0.9% 1000ML 1,000 ML ONE (09:03)
[2025-01-19] MEDS: GENTAMICIN 80MG/NS 100 ML 200 ML IV ONE (09:04)
[2025-01-19 09:38] LABS: ANION GAP 15.7 mmol/L (8-16); CALCIUM 8.6 mg/dL (8.4-10.2); CREATININE, SERUM 0.79 mg/dL (0.57-1.11); POTASSIUM 3.7 mmol/L (3.5-5.1); URIC ACID 4.8 mg/dL (2.6-8.0)
[2025-01-19 14:05] VITALS: TEMP 97.9
[2025-01-19] MEDS: PHENAZOPYRIDINE HCL 100 MG TAB ONE (14:25)
[2025-01-19 14:50] VITALS: BP 138/76; PULSE 70; RESP 16; O2SAT 98
== END | disposition home or self-care (01) ==
LOC: OR 08:08
PROVIDERS: ATTEND Urology
DX: N20.0 Calculus of kidney (principal); Z46.6 Encounter for fitting and adjustment of urinary device; N28.89 Other specified disorders of kidney and ureter; R35.1 Nocturia; R39.14 Feeling of incomplete bladder emptying; N13.30 Unspecified hydronephrosis; N35.92 Unspecified urethral stricture, female; N81.10 Cystocele, unspecified; N81.6 Rectocele; N95.2 Postmenopausal atrophic vaginitis; G47.33 Obstructive sleep apnea (adult) (pediatric); J44.9 Chronic obstructive pulmonary disease, unspecified; E66.01 Morbid (severe) obesity due to excess calories; K21.9 Gastro-esophageal reflux disease without esophagitis; K28.9 Gastrojejunal ulcer, unspecified as acute or chronic, without hemorrhage or perforation; F41.9 Anxiety disorder, unspecified; F32.A Depression, unspecified; Z88.6 Allergy status to analgesic agent; Z88.0 Allergy status to penicillin; Z01.812 Encounter for preprocedural laboratory examination; Z79.02 Long term (current) use of antithrombotics/antiplatelets; Z79.899 Other long term (current) drug therapy; Z68.36 Body mass index [BMI] 36.0-36.9, adult; Z86.718 Personal history of other venous thrombosis and embolism
CPT/HCPCS: 36415 ×2; 52352; 74018; 74420; 80048; 84550; 85025; 87086; C1769; J1100; J1580; J2003; J2405; J2704; J3010; J7030; J1308